=== PATIENT | female | born 1960 | race African-American/Black ===

== ENCOUNTER 2024-06-15 17:07 | Emergency (ER) | payer OTHER ==
[~2024-06-15] VITALS: Ht 157.5 cm; Wt 54.4 kg
[2024-06-15 17:16] VITALS: O2SAT 95
[2024-06-15 17:20] VITALS: BP 213/137; PULSE 61; RESP 16; TEMP 36.7; O2SAT 100
[2024-06-15] MEDS: LIDOCAINE HCL 1% 20ML VIAL INFIL ONE (19:51)
[2024-06-15] MEDS ORDERED: HYDROCHLOROTHIAZIDE 25MG TABLET PO ONE (21:45)
[2024-06-15] MEDS ORDERED: HYDRALAZINE HCL 25MG TABLET PO ONE (21:45)
== END 2024-06-15 21:52 | disposition home or self-care (01) ==
LOC: ER 17:16
DX: S01.111A Laceration without foreign body of right eyelid and periocular area, initial encounter (principal); S09.90XA Unspecified injury of head, initial encounter; I10 Essential (primary) hypertension; F10.129 Alcohol abuse with intoxication, unspecified; W01.0XXA Fall on same level from slipping, tripping and stumbling without subsequent striking against object, initial encounter; Y93.01 Activity, walking, marching and hiking; Y92.480 Sidewalk as the place of occurrence of the external cause; Y99.9 Unspecified external cause status
CPT/HCPCS: 70450; 93005; 12011; 99284; J3490; Z7610 ×2